=== PATIENT | female | born 1985 | race Caucasian/White ===

== ENCOUNTER 2020-06-28 17:17 | Inpatient (IN) | payer BC, OTHER ==
[~2020-06-28] VITALS: Ht 170.2 cm; Wt 90.7 kg
[2020-06-28 18:40] LABS: HEMOGLOBIN 12.3 gm/dl (12.3-15.3); RED BLOOD COUNT 4.25 M/UL (4.00-5.10); WHITE BLOOD COUNT 9.2 K/UL (4.5-11.0)
[2020-06-28 19:02] LABS: BUN/CREATININE RATIO 20 (0-10)
[2020-06-28] MEDS ORDERED: PROBIOTIC1 EAC1 PO (20:39)
[2020-06-28] MEDS ORDERED: PRENATAL VITAM1 EAC3 PO (20:39)
[2020-06-28] MEDS ORDERED: PEPCID20 MG PO (20:40)
[2020-06-29] MEDS ORDERED: IBU600 MG PO (16:44)
[2020-06-29] MEDS ORDERED: COLACE100 MG PO (16:44)
[2020-06-30 05:56] LABS: HEMOGLOBIN 11.7 gm/dl (12.3-15.3)
== END 2020-07-01 17:21 | disposition home or self-care (01) | DRG 807 ==
LOC: GENOP 17:17 → OB 17:46
PROVIDERS: Obstetrics & Gynecology; ADMIT Obstetrics & Gynecology
PROC: 4A1HX4Z Monitoring of Products of Conception, Cardiac Electrical Activity, External Approach (ICD-10-PCS; principal; 2020-06-29)
PROC: 10E0XZZ Delivery of Products of Conception, External Approach (ICD-10-PCS; 2020-06-29)
PROC: 0HQ9XZZ Repair Perineum Skin, External Approach (ICD-10-PCS; 2020-06-29)
DX: O13.4 Gestational [pregnancy-induced] hypertension without significant proteinuria, complicating childbirth (principal); Z37.0 Single live birth; Z3A.38 38 weeks gestation of pregnancy; O99.824 Streptococcus B carrier state complicating childbirth; E73.9 Lactose intolerance, unspecified; R30.0 Dysuria; O09.813 Supervision of pregnancy resulting from assisted reproductive technology, third trimester; O70.0 First degree perineal laceration during delivery
CPT/HCPCS: 36415; 51702; 80053; 81001; 82570; 82800; 84156; 84550; 85014; 85018; 85025; 90471; 90715; C9113; J0690; J2590; J7030; J7120; U0002